=== PATIENT | male | born 1990 | race Two or more races ===

== ENCOUNTER 2016-09-15 19:28 | Emergency (ER) | payer SELFPAY ==
[~2016-09-15] VITALS: Ht 177.8 cm; Wt 94.8 kg
--- NOTE | 2016-09-15 19:35 | Emergency Room Report ---
History of Present Illness General Chief Complaint: Upper Extremity Injury Source: Patient Present Illness HPI The patient slipped and fell. He believes he dislocated his right shoulder. It 's been dislocated before. He ate a large meal at 4 PM. Also took some Advil earlier today. He denies any loss of consciousness. States his dislocated shoulder multiple times. He is usually able to pop it back into place. This time he's been unable to pop it back into place. His pain when he tries to move his shoulder about. There is no numbness. The pain is severe at the moment. Radiates somewhat down his arm into his chest. /10 , burning aching, constant, but worse with movement. 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 Reviewed Nursing Documentation: PMH: Agreed, PSxH: Agreed Nursing Documentation-PMH Past Medical History: No Stated History Review of Systems All Other Systems: negative except mentioned in HPI Physical Exam Vital Signs Date Time Temp Pulse Resp B/P Pulse Ox O2 Delivery O2 Flow Rate FiO2 09/15/16 19:23 97.5 68 18 147/97 97 Sp02 EP Interpretation: reviewed, normal General Appearance: well appearing, no apparent distress Head: normocephalic, atraumatic Eyes: bilateral eye EOMI, bilateral eye PERRL, bilateral eye normal inspection ENT: hearing grossly normal, normal voice, moist mucus membranes Neck: full range of motion, supple Respiratory: chest non-tender, lungs clear, normal breath sounds Cardiovascular #1: regular rate, rhythm Cardiovascular #2: 2+ radial (R) Gastrointestinal: normal inspection Musculoskeletal: back normal, digits/nails normal, decreased range of mation - R shoulder, no dimpling, TTP and with any movement, other - elbow, wrist and hand without tenderness Neurologic: oriented x3, motor strength/tone normal, sensory intact, speech normal Psychiatric: mood/affect normal Skin: normal inspection, normal color Procedures Joint Reduction Joint Reduction : Consent: Written Joint Reduction Site: shoulder (R) Procedural Sedation: Yes Reduction Attempts: One Pre-Procedure NV Exam: Yes Post-Procedure NV Exam: Yes Post Joint Reduction Film: joint reduced Patient Tolerated: Well Complications: None Procedural Sedation Consent: Written Pre-Sedation Assessment: Eval. Immed. Prior to Sed, Pre-proc Edu. done Airway Assessment (Malampati): I Heart: normal Lungs: normal Abdomen: normal Extremities: abnormal - R shoulder dislocation Procedures/Plans: Closed Reduction Plan for Moderate Sedation: Other - etomidate ASA Score: I Start Time: 20:44 End Time: 20:54 Communication: No Apparent Limitation Mental Status: Awake Respiration: Unlabored Skin Condition: WNL Abdomen: WNL Nausea: NO Vomiting: NO Additional Comments: Immobilizer applied by tech. Position excellent and neurovasc normal as evaluated by me. Medical Decision Making Diagnostic Impression: Primary Impression: Shoulder dislocation Qualified Codes: S43.004A - Unspecified dislocation of right shoulder joint, initial encounter ER Course Presents with right shoulder pain after fall. Differential includes fracture, dislocation and contusion. Patient will be given analgesia and x-rays we obtained. X-rays reveal anterior shoulder dislocation. I discussed with the patient the risks and benefits of moderate sedation. He understands these. Plan to use etomidate to reduce the shoulder. See procedure notes. Tolerated well. Patient stable for outpatient observation and treatment. Other X-Ray Diagnostic Results Other X-Ray Diagnostic Results #1: X-Ray Ordered: shoulder Findings: no fractures, no soft tissue swelling, other - ant dislocation Number of Views: 3 Other X-Ray Diagnostic Results #2: X-Ray Ordered: R shoulder EP Interpretation: Yes Findings: no fractures, no dislocation, no soft tissue swelling, other - reduced Number of Views: 1 Last Vital Signs Date Time Temp Pulse Resp B/P Pulse Ox O2 Delivery O2 Flow Rate FiO2 09/15/16 22:57 64 16 126/81 100 Room Air 09/15/16 21:50 98.6 Status: improved Disposition: HOME, SELF-CARE Scripts Ibuprofen* (MOTRIN*) 600 Mg Tablet 600 MG ORAL Q6H Y for For Pain, #14 TAB Prov: Torres Weaver M.D. 09/15/16 Tramadol Hcl* (ULTRAM*) 50 Mg Tablet 50 MG ORAL Q6H Y for For Pain, #10 TAB 0 Refills Prov: Torres Weaver M.D. 09/15/16 Torres Weaver M.D. Sep 15, 2016 19:35
[2016-09-15] MEDS ORDERED: fentaNYL 100 mcg/2 mL IV ONE (19:45)
[2016-09-15] MEDS ORDERED: Ketorolac 30mg Inj IM ONE (19:45)
[2016-09-15] MEDS ORDERED: Ketorolac 30mg Inj IV ONE (20:00)
[2016-09-15] MEDS ORDERED: Etomidate 40mg/20ml Inj IV ONE (20:15)
[2016-09-15 20:17] VITALS: BP 142/99
[2016-09-15 20:44] VITALS: BP 150/91
[2016-09-15 21:50] VITALS: BP 126/80
[2016-09-15] MEDS ORDERED: IBUPROFEN600 MG ORAL (22:47)
[2016-09-15] MEDS ORDERED: TRAMADOL HCL50 MG ORAL (22:47)
[2016-09-15 22:57] VITALS: BP 126/81
--- NOTE | 2016-09-16 14:44 | Diagnostic Imaging Report ---
Indication: Postreduction Technique: 2 views of the right shoulder Comparison: One hour earlier Findings: Interim reduction of previously demonstrated right shoulder dislocation, now with normal satisfactory alignment. No definite bony injury Impression: Interim reduction of previously demonstrated right shoulder dislocation This agrees with the preliminary interpretation provided by the emergency room physician
--- NOTE | 2016-09-17 10:47 | Diagnostic Imaging Report ---
Indication: Pain Findings: 2 views of the right shoulder were obtained. The views are limited showing no obvious dislocation or fracture. Impression: Suboptimal exam. No obvious fracture or dislocation
== END 2016-09-15 23:08 | disposition home or self-care (01) ==
LOC: EDBD 19:28 → EMR 20:15
DX: S43.004A Unspecified dislocation of right shoulder joint, initial encounter (principal); W01.0XXA Fall on same level from slipping, tripping and stumbling without subsequent striking against object, initial encounter; Y92.89 Other specified places as the place of occurrence of the external cause
CPT/HCPCS: 23650; 73020; 73030; 96374; 96375; 99284; J1885; J2405; J3010